=== PATIENT | female | born 2000 | race Caucasian/White ===

== ENCOUNTER 2019-08-06 08:26 | Emergency (ER) | payer OTHER, BC ==
[~2019-08-06] VITALS: Ht 172.7 cm; Wt 59.0 kg
[2019-08-06 08:30] VITALS: BP_SYST 118
--- NOTE | 2019-08-06 08:30 | NUR ---
Patient triaged and placed in waiting room. VSS and patient appears in no acute distress at this time. Accompanied by SELF, awaiting available bed, and MD notified of need for MSE.
--- NOTE | 2019-08-06 09:23 | NUR ---
BROUGHT BACK TO BED #7 AND REPORT GIVEN TO VINITA
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
--- NOTE | 2019-08-06 09:45 | NUR ---
Dr Clarke at bedside examining patient
[2019-08-06] MEDS ORDERED: IBUPROFEN 800 MG TABLET PO ONE (10:15)
[2019-08-06 10:25] VITALS: BP_SYST 118
--- NOTE | 2019-08-06 10:27 | NUR ---
Patient given written and verbal discharge instructions and verbalizes understanding. ER MD discussed with patient the results and treatment provided. Patient in stable condition. ID arm band removed. Rx of Motrin given. Patient educated on pain management and to follow up with PMD. Pain Scale 2/10 tolerable for pt. Opportunity for questions provided and answered. Medication side effect fact sheet provided.
== END 2019-08-06 10:27 | disposition home or self-care (01) ==
LOC: SED 08:26
DX: S16.1XXA Strain of muscle, fascia and tendon at neck level, initial encounter (principal); S40.812A Abrasion of left upper arm, initial encounter; Z88.5 Allergy status to narcotic agent; V49.40XA Driver injured in collision with unspecified motor vehicles in traffic accident, initial encounter; Y93.89 Activity, other specified; Y92.89 Other specified places as the place of occurrence of the external cause; Y99.8 Other external cause status
CPT/HCPCS: 99282